=== PATIENT | male | born 1995 | race Two or more races ===

== ENCOUNTER 2020-08-14 21:52 | Emergency (ER) | payer SELFPAY ==
[~2020-08-14] VITALS: Ht 172.7 cm; Wt 80.0 kg
[2020-08-15] MEDS ORDERED: SULF1TAB24 PO (00:08)
[2020-08-15] MEDS ORDERED: MUPI22OI2 TP (00:08)
--- NOTE | 2020-08-15 00:08 | PHYS DOC ---
Past Medical History Past Medical History: No Pertinent History Past Surgical History: No Surgical History Smoking Status: Current Every Day Smoker Alcohol Use: Occasionally General Adult EDM: Chief Complaint: SKIN RASH/ABSCESS HPI: HPI: Patient is a 25 year old [f__sex] who presents with [] Review of Systems: Review of Systems: Constitutional: Denies fever or chills. [] Eyes: Denies change in visual acuity. [] HENT: Denies nasal congestion or sore throat. [] Respiratory: Denies cough or shortness of breath. [] Cardiovascular: Denies chest pain or edema. [] GI: Denies abdominal pain, nausea, vomiting, bloody stools or diarrhea. [] : Denies dysuria. [] Musculoskeletal: Denies back pain or joint pain. [] Integument: Denies rash. [] Neurologic: Denies headache, focal weakness or sensory changes. [] Endocrine: Denies polyuria or polydipsia. [] Lymphatic: Denies swollen glands. [] Psychiatric: Denies depression or anxiety. [] Heart Score: Risk Factors: Risk Factors: DM, Current or recent (<one month) smoker, HTN, HLP, family history of CAD, obesity. Risk Scores: Score 0 - 3: 2.5% MACE over next 6 weeks - Discharge Home Score 4 - 6: 20.3% MACE over next 6 weeks - Admit for Clinical Observation Score 7 - 10: 72.7% MACE over next 6 weeks - Early Invasive Strategies Allergies: Allergies: Allergies Coded Allergies Type Severity Reaction Last Updated Verified No Known Drug Allergies 08/14/20 No Physical Exam: PE: Constitutional: Well developed, well nourished, no acute distress, non-toxic appearance. [] HENT: Normocephalic, atraumatic, bilateral external ears normal, oropharynx moist, no oral exudates, nose normal. [] Eyes: PERRLA, EOMI, conjunctiva normal, no discharge. [] Neck: Normal range of motion, no tenderness, supple, no stridor. [] Cardiovascular:Heart rate regular rhythm, no murmur [] Lungs & Thorax: Bilateral breath sounds clear to auscultation [] Abdomen: Bowel sounds normal, soft, no tenderness, no masses, no pulsatile masses. [] Skin: Warm, dry, no erythema, no rash. [] Back: No tenderness, no CVA tenderness. [] Extremities: No tenderness, no cyanosis, no clubbing, ROM intact, no edema. [] Neurologic: Alert and oriented X 3, normal motor function, normal sensory function, no focal deficits noted. [] Psychologic: Affect normal, judgement normal, mood normal. [] Current Patient Data: Vital Signs: Vital Signs Date Time Temp Pulse Resp B/P (MAP) Pulse Ox O2 Delivery O2 Flow Rate FiO2 08/14/20 23:23 98.7 99 18 135/87 (103) 97 Room Air 98.7 EKG: EKG: [] Radiology/Procedures: Radiology/Procedures: [] Course & Med Decision Making: Course & Med Decision Making Pertinent Labs and Imaging studies reviewed. (See chart for details) [] Dragon Disclaimer: Dragon Disclaimer: This electronic medical record was generated, in whole or in part, using a voice recognition dictation system. Departure Departure Impression: Primary Impression: Folliculitis Additional Impression: Abscess Disposition: 01 DC HOME SELF CARE/HOMELESS Condition: IMPROVED Referrals: NO PCP (PCP) Patient Instructions: Abscess Additional Instructions: Take medications as directed, return to the emergency department for worsening symptoms, see your doctor soon. Scripts Sulfamethoxazole/Trimethoprim (BACTRIM DS TABLET) 1 Each Tablet 1 TAB PO BID for INFECTION for 10 Days, #20 TAB 0 Refills Prov: CONNIE MARTÍNEZ APRN 08/15/20 Mupirocin (MUPIROCIN OINTMENT) 22 Gm Oint...g. 1 TJ TP TID for WOUND CARE, #1 TUBE 0 Refills Prov: CONNIE MARTÍNEZ APRN 08/15/20 CONNIE MARTÍNEZ APRN Aug 15, 2020 00:08
[2020-08-15] MEDS ORDERED: MUPIROCIN 2 % TOPICAL CREAM 30GM TUBE. TP SCH (00:30)
[2020-08-15] MEDS ORDERED: SMZ/TMP 800/160MG TABLET. PO ONE (00:30)
[2020-08-15] MEDS ORDERED: LIDOCAINE 2% Multi-Dose 20 ML VIAL. IJ ONE (00:30)
[2020-08-15 01:30] VITALS: BP 107/63
[2020-08-15] MEDS ORDERED: HYDROmorphone 2 MG/ML VIAL IM ONE (01:30)
== END 2020-08-15 01:30 | disposition home or self-care (01) ==
LOC: ER 21:52
DX: L73.9 Follicular disorder, unspecified (principal); N45.4 Abscess of epididymis or testis; F17.200 Nicotine dependence, unspecified, uncomplicated
CPT/HCPCS: 96372; 99283